=== PATIENT | female | born 1980 | race Two or more races ===

== ENCOUNTER 2023-05-07 15:17 | Emergency (ER) | payer SELFPAY ==
[~2023-05-07] VITALS: Ht 152.4 cm; Wt 72.7 kg
[2023-05-07 15:45] VITALS: BP 139/95; PULSE 71; RESP 16; O2SAT 100
[2023-05-07] MEDS ORDERED: KETOROLAC TROMETH 30 MG/ML 1ML VIAL IM ONE (17:30)
[2023-05-07] MEDS ORDERED: ACETAMINOPHEN/CODEINE#3 (300/30mg) TAB PO ONE (17:30)
[2023-05-07] MEDS ORDERED: IBUP-1455 PO (17:33)
[2023-05-07] MEDS ORDERED: AZIT4SOL RIGHTEYE (17:33)
[2023-05-07] MEDS ORDERED: ACE3T PO (17:33)
== END 2023-05-07 20:38 | disposition home or self-care (01) ==
LOC: ER 15:17
DX: S05.01XA Injury of conjunctiva and corneal abrasion without foreign body, right eye, initial encounter (principal); X58.XXXA Exposure to other specified factors, initial encounter; Y93.89 Activity, other specified; Y92.89 Other specified places as the place of occurrence of the external cause; Y99.8 Other external cause status